=== PATIENT | female | born 1965 | race Caucasian/White ===

== ENCOUNTER 2017-08-18 11:31 | Inpatient (IN) | payer MEDICARE, MEDICAID ==
[~2017-08-18] VITALS: Ht 160 cm; Wt 94.2 kg
[2017-08-18 12:21] LABS: BASOPHILS % (AUTO) 0.5 % (0-1); EOSINOPHILS # (AUTO) 0.1 X10'3 (0-0.9); EOSINOPHILS % (AUTO) 1.7 % (0-6); HEMATOCRIT 51.1 % (35.0-45.0); HEMOGLOBIN 17.1 g/dl (12.0-16.0); LYMPHOCYTES # (AUTO) 1.6 X10'3 (1.1-4.8); MEAN CORPUSCULAR HEMOGLOBIN 31.2 PG (27.0-31.0); MEAN CORPUSCULAR HGB CONC 33.6 % (33.0-36.5); MEAN PLATELET VOLUME 8.7 FL (7.4-10.4); MONOCYTES # (AUTO) 0.5 X10'3 (0-0.9); MONOCYTES % (AUTO) 7.4 % (2-12); NEUTROPHILS # (AUTO) 4.5 X10'3 (1.8-7.7); NEUTROPHILS % (AUTO) 66.4 % (42-75); PLATELET COUNT 218 X10'3 (140-440); RED BLOOD COUNT 5.49 X10'6 (4.20-5.60); RED CELL DISTRIBUTION WIDTH 14.8 % (11.5-14.5); WHITE BLOOD COUNT 6.8 X10'3 (4.5-11.0)
[2017-08-18 12:32] LABS: INR 0.9 INR; PROTHROMBIN TIME 9.5 SECONDS (9.0-12.0)
[2017-08-18 12:38] LABS: ALANINE AMINOTRANSFERASE 117 U/L (12-78); ALBUMIN 3.4 G/DL (3.4-5.0); ALBUMIN/GLOBULIN RATIO 0.8 (1.1-1.5); ALKALINE PHOSPHATASE 325 IU/L (46-116); ANION GAP 5 (8-16); ASPARTATE AMINO TRANSFERASE 111 U/L (10-37); BLOOD UREA NITROGEN 13 MG/DL (7-18); BUN/CREATININE RATIO 17.1 (6.6-38.0); CALCIUM 9.3 MG/DL (8.5-10.1); CHLORIDE 105 MMOL/L (99-107); CREATININE 0.76 MG/DL (0.40-0.90); GLUCOSE 116 MG/DL (70-104); POTASSIUM 3.9 MMOL/L (3.5-5.1); SODIUM 138 MMOL/L (135-145); TOTAL CARBON DIOXIDE 27.7 MMOL/L (24-32); TOTAL PROTEIN 7.6 G/DL (6.4-8.2); eGFR 79 ML/MIN
[2017-08-18] MEDS ORDERED: normal saline 1000ML IV soln IVB ONE (14:35)
[2017-08-18] MEDS ORDERED: ondansetron/PF 4mg/2ml inj IV ONE (14:35)
[2017-08-18 14:46] LABS: LIPASE 139 U/L (73-393)
[2017-08-18 15:44] LABS: CLARITY,URINE CLEAR (Clear); GLUCOSE, URINE NEGATIVE (Neg); KETONES,URINE TRACE mg/dl (Neg); LEUKOCYTE ESTERASE ,URINE NEGATIVE (Neg); NITRITES, URINE NEGATIVE (Neg); OCCULT BLOOD,URINE TRACE-LYSED (Neg); PROTEIN,URINE NEGATIVE (Neg)
[2017-08-18 15:50] LABS: COLOR,URINE DARK YELLOW (Yellow); UA COLLECTION TYPE CLN CATCH MIDSTREAM
[2017-08-18 15:51] LABS: BACTERIA,URINE NONE SEEN /HPF (Neg); MUCUS STRANDS FEW /LPF (Neg); RBC,URINE 0-2 /HPF (0-2); SQUAMOUS EPITHELIAL CELL,UR FEW /LPF (FEW); WBC,URINE 0-4 /HPF (0-4)
[2017-08-18] MEDS ORDERED: LORazepam 2 mg/ml vial IV ONE (16:10)
[2017-08-18] MEDS ORDERED: HYDROcodone/acetaminophen 5mg/325mg tablet PO PRN (16:35)
[2017-08-18] MEDS ORDERED: magnesium Cl slow-release 64mg tablet PO PRN (16:35)
[2017-08-18] MEDS ORDERED: acetaminophen 325mg tablet PO PRN (16:35)
[2017-08-18] MEDS ORDERED: magnesium 4gm in 100ml NS 100 ML IV PRN (16:35)
[2017-08-18] MEDS ORDERED: magnesium hydroxide 30ml (MOM) UD suspension PO PRN (16:35)
[2017-08-18] MEDS ORDERED: bisacodyl 10mg suppository rectal RC PRN (16:35)
[2017-08-18] MEDS ORDERED: potassium Cl 20 mEq SR tablet PO PRN ×2 (16:35)
[2017-08-18] MEDS ORDERED: magnesium 2GM in 50ml NS 50 ML IV PRN (16:35)
[2017-08-18] MEDS ORDERED: mag hydrox/Alum hydrox/simeth 30ml oral suspension PO PRN (16:35)
[2017-08-18] MEDS ORDERED: potassium Cl 40MEQ/NS 500ml 500 ML IV PRN ×2 (16:35)
[2017-08-18] MEDS ORDERED: ondansetron 4mg rapidly disintigrating tab PO PRN (16:35)
[2017-08-18] MEDS: piperacillin/tazo 3.375gm/50ml 50 ML IV SCH ×2 (16:47→23:41)
[2017-08-18] MEDS ORDERED: NO HOME MEDS (17:29)
[2017-08-18] MEDS: normal saline 1000ml 1,000 ML IV SCH (17:55)
[2017-08-18] MEDS: docusate sod 100mg capsule PO SCH (20:00)
[2017-08-18] MEDS: ondansetron/PF 4mg/2ml inj IV PRN (20:53)
[2017-08-18] MEDS ORDERED: temazepam 15mg capsule PO PRN (21:00)
[2017-08-19] VITALS: BP 113/64
[2017-08-19 01:34] VITALS: BP 130/75
[2017-08-19 02:22] LABS: BASOPHILS # (AUTO) 0.1 X10'3 (0-0.2); BASOPHILS % (AUTO) 0.7 % (0-1); EOSINOPHILS # (AUTO) 0.1 X10'3 (0-0.9); EOSINOPHILS % (AUTO) 1.1 % (0-6); HEMATOCRIT 43.1 % (35.0-45.0); HEMOGLOBIN 14.6 g/dl (12.0-16.0); LYMPHOCYTES # (AUTO) 2.4 X10'3 (1.1-4.8); MEAN CORPUSCULAR HEMOGLOBIN 31.8 PG (27.0-31.0); MEAN CORPUSCULAR VOLUME 93.5 FL (78-98); MEAN PLATELET VOLUME 8.8 FL (7.4-10.4); MONOCYTES # (AUTO) 0.8 X10'3 (0-0.9); MONOCYTES % (AUTO) 9.6 % (2-12); NEUTROPHILS % (AUTO) 59.6 % (42-75); PLATELET COUNT 186 X10'3 (140-440); RED BLOOD COUNT 4.61 X10'6 (4.20-5.60); RED CELL DISTRIBUTION WIDTH 14.2 % (11.5-14.5); WHITE BLOOD COUNT 8.4 X10'3 (4.5-11.0)
[2017-08-19 02:51] LABS: ALBUMIN 2.7 G/DL (3.4-5.0); ANION GAP 10 (8-16); BLOOD UREA NITROGEN 9 MG/DL (7-18); CALCIUM 8.3 MG/DL (8.5-10.1); CHLORIDE 109 MMOL/L (99-107); GLUCOSE 89 MG/DL (70-104); MAGNESIUM 1.8 MG/DL (1.5-2.4); POTASSIUM 3.5 MMOL/L (3.5-5.1); SODIUM 143 MMOL/L (135-145); TOTAL CARBON DIOXIDE 24.5 MMOL/L (24-32); eGFR 65 ML/MIN
[2017-08-19] MEDS: normal saline 1000ml 1,000 ML IV SCH ×3 (03:40→21:35)
[2017-08-19 07:00] VITALS: BP 132/81
[2017-08-19] MEDS: K and/or MAG REPLACEMENT MC SCH (07:20)
[2017-08-19] MEDS: ondansetron/PF 4mg/2ml inj IV PRN ×2 (07:28→19:08)
[2017-08-19] MEDS: piperacillin/tazo 3.375gm/50ml 50 ML IV SCH ×3 (07:29→23:59)
[2017-08-19] MEDS: docusate sod 100mg capsule PO SCH ×2 (08:00→20:00)
[2017-08-19] MEDS ORDERED: pneumococcal 23-VAL P-sac vacc 25 mcg/0.5ml vial IMVAC ONE (09:00)
[2017-08-19 11:00] VITALS: BP 119/71
[2017-08-19] MEDS ORDERED: SINCALIDE IV ONE (11:18)
[2017-08-19] MEDS ORDERED: NORMAL SALINE IV ONE (11:18)
[2017-08-19] MEDS: LORazepam 2 mg/ml vial IV PRN ×2 (12:34→21:24)
[2017-08-19 20:00] VITALS: BP 126/76
[2017-08-20] VITALS (11 sets, daily range): BP systolic 104–147; BP diastolic 57–106
[2017-08-20 06:21] LABS: BASOPHILS % (AUTO) 0.3 % (0-1); EOSINOPHILS # (AUTO) 0.1 X10'3 (0-0.9); EOSINOPHILS % (AUTO) 2.2 % (0-6); HEMATOCRIT 45.1 % (35.0-45.0); HEMOGLOBIN 15.4 g/dl (12.0-16.0); LYMPHOCYTES # (AUTO) 1.9 X10'3 (1.1-4.8); LYMPHOCYTES % (AUTO) 28.9 % (21-51); MEAN CORPUSCULAR HEMOGLOBIN 31.8 PG (27.0-31.0); MEAN CORPUSCULAR HGB CONC 34.1 % (33.0-36.5); MEAN CORPUSCULAR VOLUME 93.2 FL (78-98); MEAN PLATELET VOLUME 9.1 FL (7.4-10.4); MONOCYTES # (AUTO) 0.6 X10'3 (0-0.9); MONOCYTES % (AUTO) 9.2 % (2-12); NEUTROPHILS # (AUTO) 3.8 X10'3 (1.8-7.7); NEUTROPHILS % (AUTO) 59.4 % (42-75); PLATELET COUNT 198 X10'3 (140-440); RED BLOOD COUNT 4.84 X10'6 (4.20-5.60); RED CELL DISTRIBUTION WIDTH 14.2 % (11.5-14.5); WHITE BLOOD COUNT 6.4 X10'3 (4.5-11.0)
[2017-08-20 06:33] LABS: PROTHROMBIN TIME 9.9 SECONDS (9.0-12.0)
[2017-08-20 06:50] LABS: ALANINE AMINOTRANSFERASE 99 U/L (12-78); ALBUMIN 2.8 G/DL (3.4-5.0); ALBUMIN/GLOBULIN RATIO 0.8 (1.1-1.5); ALKALINE PHOSPHATASE 241 IU/L (46-116); ANION GAP 8 (8-16); ASPARTATE AMINO TRANSFERASE 81 U/L (10-37); BILIRUBIN,TOTAL 7.4 MG/DL (0.1-1.0); BLOOD UREA NITROGEN 11 MG/DL (7-18); BUN/CREATININE RATIO 12.6 (6.6-38.0); CALCIUM 8.3 MG/DL (8.5-10.1); CHLORIDE 106 MMOL/L (99-107); CREATININE 0.87 MG/DL (0.40-0.90); GLUCOSE 77 MG/DL (70-104); MAGNESIUM 1.8 MG/DL (1.5-2.4); POTASSIUM 3.7 MMOL/L (3.5-5.1); SODIUM 140 MMOL/L (135-145); TOTAL CARBON DIOXIDE 25.9 MMOL/L (24-32); TOTAL PROTEIN 6.4 G/DL (6.4-8.2); eGFR 68 ML/MIN
[2017-08-20] MEDS: K and/or MAG REPLACEMENT MC SCH (08:00)
[2017-08-20] MEDS ORDERED: pneumococcal 23-VAL P-sac vacc 25 mcg/0.5ml vial IMVAC ONE (09:00)
[2017-08-20] MEDS: normal saline 1000ml 1,000 ML IV SCH ×2 (09:11→18:32)
[2017-08-20] MEDS: piperacillin/tazo 3.375gm/50ml 50 ML IV SCH ×2 (09:12→16:17)
[2017-08-20] MEDS: docusate sod 100mg capsule PO SCH ×2 (09:12→20:00)
[2017-08-20] MEDS: LORazepam 2 mg/ml vial IV PRN (09:15)
[2017-08-20] MEDS ORDERED: MIDAZolam 1mg/ml 10ml vial IV PRN (12:45)
[2017-08-20] MEDS ORDERED: LIDOcaine Viscous 15ml cup PO ONE (12:45)
[2017-08-20] MEDS ORDERED: simethicone 40mg/0.6ml oral drops 30ml MC ONE (12:45)
[2017-08-20] MEDS ORDERED: fentaNYL/PF 50MCG/1 ML 2ML syringe IV PRN (12:45)
[2017-08-20] MEDS ORDERED: normal saline 1000ml 1,000 ML IV SCH (12:45)
[2017-08-20] MEDS ORDERED: glucagon, human recombinant 1mg kit ONE (12:58)
[2017-08-20] MEDS ORDERED: MIDAZolam 1mg/ml 10ml vial ONE (12:58)
[2017-08-20] MEDS ORDERED: LIDOcaine Viscous 15ml cup ONE (12:58)
[2017-08-20] MEDS ORDERED: fentaNYL/PF 50MCG/1 ML 2ML syringe ONE (12:58)
[2017-08-20] MEDS ORDERED: meperidine/PF 100mg/ml syringe ONE (12:58)
[2017-08-20] MEDS ORDERED: iohexol 300 MG/1 ML 50ml polymer ONE (12:59)
[2017-08-20] MEDS ORDERED: levoFLOXACIN-Levaquin 500mg/D5 0 ML IV ONE (13:00)
[2017-08-20] MEDS ORDERED: diphenhydrAMINE 50 mg/ml inj ONE (13:36)
[2017-08-20] MEDS: ondansetron/PF 4mg/2ml inj IV PRN (23:05)
[2017-08-21] VITALS (19 sets, daily range): BP systolic 115–163; BP diastolic 68–93
[2017-08-21] MEDS: piperacillin/tazo 3.375gm/50ml 50 ML IV SCH ×3 (00:10→16:12)
[2017-08-21] MEDS: normal saline 1000ml 1,000 ML IV SCH ×2 (00:15→16:11)
[2017-08-21 06:10] LABS: BASOPHILS % (AUTO) 0.4 % (0-1); EOSINOPHILS # (AUTO) 0.2 X10'3 (0-0.9); EOSINOPHILS % (AUTO) 2.2 % (0-6); HEMATOCRIT 43.2 % (35.0-45.0); HEMOGLOBIN 14.7 g/dl (12.0-16.0); LYMPHOCYTES % (AUTO) 25.5 % (21-51); MEAN CORPUSCULAR HEMOGLOBIN 31.8 PG (27.0-31.0); MEAN CORPUSCULAR VOLUME 93.4 FL (78-98); MEAN PLATELET VOLUME 9.4 FL (7.4-10.4); MONOCYTES # (AUTO) 0.7 X10'3 (0-0.9); MONOCYTES % (AUTO) 8.7 % (2-12); NEUTROPHILS % (AUTO) 63.2 % (42-75); PLATELET COUNT 189 X10'3 (140-440); RED BLOOD COUNT 4.62 X10'6 (4.20-5.60); RED CELL DISTRIBUTION WIDTH 14.4 % (11.5-14.5); WHITE BLOOD COUNT 7.9 X10'3 (4.5-11.0)
[2017-08-21 06:19] LABS: ALANINE AMINOTRANSFERASE 91 U/L (12-78); ALBUMIN 2.7 G/DL (3.4-5.0); ALBUMIN/GLOBULIN RATIO 0.8 (1.1-1.5); ALKALINE PHOSPHATASE 208 IU/L (46-116); ANION GAP 6 (8-16); ASPARTATE AMINO TRANSFERASE 82 U/L (10-37); BILIRUBIN,TOTAL 3.7 MG/DL (0.1-1.0); BLOOD UREA NITROGEN 11 MG/DL (7-18); BUN/CREATININE RATIO 12.2 (6.6-38.0); CALCIUM 8.4 MG/DL (8.5-10.1); CHLORIDE 105 MMOL/L (99-107); GLUCOSE 86 MG/DL (70-104); MAGNESIUM 1.7 MG/DL (1.5-2.4); POTASSIUM 3.6 MMOL/L (3.5-5.1); SODIUM 139 MMOL/L (135-145); TOTAL PROTEIN 6.3 G/DL (6.4-8.2); eGFR 65 ML/MIN
[2017-08-21] MEDS: docusate sod 100mg capsule PO SCH ×2 (07:49→19:54)
[2017-08-21] MEDS: K and/or MAG REPLACEMENT MC SCH (08:00)
[2017-08-21] MEDS ORDERED: pneumococcal 23-VAL P-sac vacc 25 mcg/0.5ml vial IMVAC ONE (10:00)
[2017-08-21] MEDS ORDERED: BUPIVAcaine/PF 2.5 mg/ml (0.25%) 30ml vial ONE (10:55)
[2017-08-21] MEDS ORDERED: ceFAZolin 1000mg inj ONE ×3 (10:55→12:52)
[2017-08-21 11:13] LABS: HBSAG SCREEN Negative (Negative); HEP A AB, IGM Negative (Negative); HEPATITIS C ANTIBODY >11.0 s/co ratio (0.0-0.9)
[2017-08-21] MEDS ORDERED: ceFAZolin 2gm in dextrose, iso 100 ML IV ONE (11:30)
[2017-08-21] MEDS ORDERED: fentaNYL/PF 50MCG/1 ML 2ML syringe ONE (12:11)
[2017-08-21] MEDS ORDERED: midazolam 2 mg/2 ml injection ONE (12:11)
[2017-08-21] MEDS ORDERED: propofol inj 20 ML IV ONE (12:12)
[2017-08-21] MEDS ORDERED: rocuronium 10mg/ml inj IV ONE (12:12)
[2017-08-21] MEDS ORDERED: LIDOcaine 1% 30ml vial 30 ML ONE (12:15)
[2017-08-21] MEDS ORDERED: ringers solution, lacted 1,000 ML IV SCH (12:24)
[2017-08-21] MEDS ORDERED: proCHLORperazine 10 MG/2 ml inj IV PRN (12:25)
[2017-08-21] MEDS ORDERED: meperidine/PF 25mg/ml syringe IV PRN ×3 (12:25)
[2017-08-21] MEDS ORDERED: ondansetron/PF 4mg/2ml inj IV PRN (12:25)
[2017-08-21] MEDS ORDERED: sevoflurane 250ml liquid IH ONE (12:31)
[2017-08-21] MEDS ORDERED: LIDOcaine 1% 30ml vial IJ ONE (13:00)
[2017-08-21] MEDS ORDERED: glycopyrrolate 0.2mg/ml inj ONE (13:10)
[2017-08-21] MEDS ORDERED: neostigmine methylsulfate 1 MG/ML 10ml vial ONE (13:10)
[2017-08-21] MEDS ORDERED: HYDROcodone/acetaminophen 5mg/325mg tablet PO PRN (14:20)
[2017-08-21] MEDS: HYDROcodone/acetaminophen 10/325mg tab PO PRN (16:23)
[2017-08-21] MEDS: LORazepam 2 mg/ml vial IV PRN (19:53)
[2017-08-22] MEDS: piperacillin/tazo 3.375gm/50ml 50 ML IV SCH ×3 (00:49→16:00)
[2017-08-22] MEDS: normal saline 1000ml 1,000 ML IV SCH ×3 (00:50→14:32)
[2017-08-22] MEDS: HYDROcodone/acetaminophen 10/325mg tab PO PRN (01:00)
[2017-08-22 04:30] VITALS: BP 114/69
[2017-08-22 06:08] LABS: BASOPHILS % (AUTO) 0.4 % (0-1); EOSINOPHILS # (AUTO) 0.2 X10'3 (0-0.9); EOSINOPHILS % (AUTO) 2.3 % (0-6); HEMATOCRIT 42.1 % (35.0-45.0); HEMOGLOBIN 14.4 g/dl (12.0-16.0); LYMPHOCYTES # (AUTO) 1.8 X10'3 (1.1-4.8); LYMPHOCYTES % (AUTO) 20.3 % (21-51); MEAN CORPUSCULAR HEMOGLOBIN 32.1 PG (27.0-31.0); MEAN CORPUSCULAR HGB CONC 34.2 % (33.0-36.5); MEAN CORPUSCULAR VOLUME 93.7 FL (78-98); MEAN PLATELET VOLUME 9.2 FL (7.4-10.4); MONOCYTES # (AUTO) 0.9 X10'3 (0-0.9); MONOCYTES % (AUTO) 10.3 % (2-12); NEUTROPHILS # (AUTO) 5.9 X10'3 (1.8-7.7); NEUTROPHILS % (AUTO) 66.7 % (42-75); PLATELET COUNT 183 X10'3 (140-440); RED CELL DISTRIBUTION WIDTH 14.5 % (11.5-14.5); WHITE BLOOD COUNT 8.9 X10'3 (4.5-11.0)
[2017-08-22 06:17] LABS: PROTHROMBIN TIME 10.2 SECONDS (9.0-12.0)
[2017-08-22 06:18] LABS: ALBUMIN 2.8 G/DL (3.4-5.0); ANION GAP 7 (8-16); BLOOD UREA NITROGEN 6 MG/DL (7-18); BUN/CREATININE RATIO 6.6 (6.6-38.0); CALCIUM 8.4 MG/DL (8.5-10.1); CHLORIDE 103 MMOL/L (99-107); CREATININE 0.91 MG/DL (0.40-0.90); GLUCOSE 91 MG/DL (70-104); MAGNESIUM 1.7 MG/DL (1.5-2.4); POTASSIUM 3.5 MMOL/L (3.5-5.1); SODIUM 139 MMOL/L (135-145); TOTAL CARBON DIOXIDE 29.3 MMOL/L (24-32); eGFR 64 ML/MIN
[2017-08-22 07:44] VITALS: BP 129/81
[2017-08-22] MEDS: K and/or MAG REPLACEMENT MC SCH (07:52)
[2017-08-22] MEDS: docusate sod 100mg capsule PO SCH (07:56)
[2017-08-22] MEDS ORDERED: LORazepam 0.5 MG tablet PO PRN (10:10)
[2017-08-22] MEDS ORDERED: traMADol 50MG tablet PO PRN (10:15)
[2017-08-22] MEDS ORDERED: ATI0.5T PO (10:21)
[2017-08-22] MEDS ORDERED: pneumococcal 23-VAL P-sac vacc 25 mcg/0.5ml vial IMVAC ONE (10:45)
[2017-08-22 11:00] VITALS: BP 104/68
[2017-08-22] MEDS ORDERED: oxyCODONE/APAP 5-325mg tablet PO ONE (16:35)
== END 2017-08-22 17:23 | disposition home or self-care (01) | DRG 419 ==
LOC: ER 11:32 → ED HOLD 16:32 → MED 3N 18:35
PROVIDERS: ADMIT Internal Medicine; ATTEND Family Medicine
PROC: 0FC98ZZ Extirpation of Matter from Common Bile Duct, Via Natural or Artificial Opening Endoscopic (ICD-10-PCS; 2017-08-20)
PROC: 0FT44ZZ Resection of Gallbladder, Percutaneous Endoscopic Approach (ICD-10-PCS; principal; 2017-08-21 12:31)
DX: K80.70 Calculus of gallbladder and bile duct without cholecystitis without obstruction (principal); B19.20 Unspecified viral hepatitis C without hepatic coma; R94.5 Abnormal results of liver function studies; G89.29 Other chronic pain; M54.9 Dorsalgia, unspecified; R74.0 Nonspecific elevation of levels of transaminase and lactic acid dehydrogenase [LDH]; L29.9 Pruritus, unspecified; F17.210 Nicotine dependence, cigarettes, uncomplicated; Z88.6 Allergy status to analgesic agent
CPT/HCPCS: 36415; 71045; 74181; 76700; 78227; 80048; 80053; 81001; 83605; 83690; 83735; 84484; 85025; 85610; 86706; 86709; 86803; 87040; 87070; 87340; 88304; 90732; 93005; 96361; 96374; 99285; A4620; A7000; A9537; G0500; J0690; J1200; J1610; J1956; J2060; J2175; J2250; J2270; J2405; J2543; J2704; J2710; J2805; J3010; J3490; J7030; J7120; Q9967

== ENCOUNTER 2019-02-28 07:50 | Emergency (ER) | payer MEDICARE, MEDICAID ==
[~2019-02-28] VITALS: Ht 160 cm; Wt 101.8 kg
[~2019-02-28 07:50] MED LIST: ATI0.5T PO; NO HOME MEDS
[2019-02-28] MEDS ORDERED: morphine 4 MG/ML inj SYRINge IV PRN (08:00)
[2019-02-28] MEDS ORDERED: normal saline 1000ML IV soln IVB ONE ×2 (08:00→08:10)
[2019-02-28] MEDS ORDERED: ondansetron/PF 4mg/2ml inj IV ONE ×2 (08:00→08:10)
[2019-02-28] MEDS ORDERED: ketorolac tromethamine 15mg/ml inj. IV ONE ×2 (08:10→09:45)
[2019-02-28 08:28] LABS: BASOPHILS % (AUTO) 0.6 % (0-1); EOSINOPHILS # (AUTO) 0.1 X10'3 (0-0.9); EOSINOPHILS % (AUTO) 0.8 % (0-6); HEMOGLOBIN 14.7 g/dl (12.0-16.0); LYMPHOCYTES % (AUTO) 35.6 % (21-51); MEAN CORPUSCULAR HEMOGLOBIN 31.1 PG (27.0-31.0); MEAN CORPUSCULAR HGB CONC 34.1 g/dL (33.0-36.5); MEAN CORPUSCULAR VOLUME 91.3 FL (78-98); MEAN PLATELET VOLUME 8.9 FL (7.4-10.4); MONOCYTES # (AUTO) 0.8 X10'3 (0-0.9); MONOCYTES % (AUTO) 9.4 % (2-12); NEUTROPHILS # (AUTO) 4.5 X10'3 (1.8-7.7); NEUTROPHILS % (AUTO) 53.6 % (42-75); PLATELET COUNT 215 X10'3 (140-440); RED BLOOD COUNT 4.72 X10'6 (4.20-5.60); RED CELL DISTRIBUTION WIDTH 13.8 % (11.5-14.5); WHITE BLOOD COUNT 8.3 X10'3 (4.5-11.0)
[2019-02-28 08:43] LABS: ALANINE AMINOTRANSFERASE 24 U/L (12-78); ALBUMIN 3.4 G/DL (3.4-5.0); ALBUMIN/GLOBULIN RATIO 0.9 (1.1-1.5); ALKALINE PHOSPHATASE 101 IU/L (46-116); ANION GAP 7 (8-16); ASPARTATE AMINO TRANSFERASE 15 U/L (10-37); BILIRUBIN,TOTAL 0.2 MG/DL (0.1-1.0); BLOOD UREA NITROGEN 19 MG/DL (7-18); BUN/CREATININE RATIO 23.5 (6.6-38.0); CHLORIDE 107 MMOL/L (99-107); CREATININE 0.81 MG/DL (0.40-0.90); GLUCOSE 118 MG/DL (70-104); LIPASE 230 U/L (73-393); POTASSIUM 3.5 MMOL/L (3.5-5.1); SODIUM 140 MMOL/L (135-145); TOTAL CARBON DIOXIDE 26.4 MMOL/L (24-32); TOTAL PROTEIN 7.2 G/DL (6.4-8.2); eGFR 73 ML/MIN
[2019-02-28 08:49] LABS: CLARITY,URINE SLIGHTLY CLOUDY (Clear); COLOR,URINE YELLOW (Yellow); GLUCOSE, URINE NEGATIVE (Neg); KETONES,URINE NEGATIVE (Neg); LEUKOCYTE ESTERASE ,URINE NEGATIVE (Neg); NITRITES, URINE NEGATIVE (Neg); OCCULT BLOOD,URINE LARGE (Neg); PROTEIN,URINE NEGATIVE (Neg); UA COLLECTION TYPE CLN CATCH MIDSTREAM; UROBILINOGEN,URINE 0.2 E.U/dL (0.2-1.0)
[2019-02-28 08:54] LABS: HYALINE CASTS 0-3 /LPF (NEGATIVE); MUCUS STRANDS MANY /LPF (Neg); SQUAMOUS EPITHELIAL CELL,UR MANY /LPF (FEW)
[2019-02-28 08:55] LABS: BACTERIA,URINE FEW /HPF (Neg); RBC,URINE 20-50 /HPF (0-2); WBC,URINE 0-4 /HPF (0-4)
[2019-02-28] MEDS ORDERED: FLO0.4C PO (09:33)
[2019-02-28] MEDS ORDERED: HYDR-4353 PO (09:33)
[2019-02-28] MEDS ORDERED: ONDA4TAB6 PO (09:40)
[2019-02-28] MEDS ORDERED: proCHLORperazine 10 MG/2 ml inj IV ONE (09:45)
[2019-02-28 10:13] VITALS: BP 150/94
== END 2019-02-28 10:14 | disposition home or self-care (01) ==
LOC: ER 07:51
DX: N20.0 Calculus of kidney (principal); R11.2 Nausea with vomiting, unspecified; R10.31 Right lower quadrant pain; E66.9 Obesity, unspecified; G89.29 Other chronic pain; F12.90 Cannabis use, unspecified, uncomplicated; Z56.0 Unemployment, unspecified; Z90.49 Acquired absence of other specified parts of digestive tract; Z88.6 Allergy status to analgesic agent; Z79.899 Other long term (current) drug therapy
CPT/HCPCS: 36415; 74176; 80053; 81001; 83690; 85025; 85610; 96374; 96375; 96376; 99284; J0780; J1885; J2270; J2405; J7030

== ENCOUNTER 2025-03-29 10:39 | Emergency (ER) | payer MEDICARE, MEDICAID ==
[~2025-03-29] VITALS: Ht 160 cm; Wt 97.7 kg
[~2025-03-29 10:39] MED LIST changes: +ONDA4TAB6 PO
[2025-03-29] MEDS: amox tr/potassium clavulanate 875/125mg TAB PO ONE (12:19)
--- NOTE | 2025-03-29 13:32 | Physician Documentation ---
History of Present Illness ~ Chief Complaint: Bite-animal Stated Complaint: CAT BITES/SCRATCHES Time Seen by MD: 11:58 Primary Medical Doctor: [facility] Patient is seen today with complaints of cat scratch earlier today of the left upper extremity around her wrist and distal forearm. Patient denies any bites from the cat and states that it is her cat and Garrison his vaccinated. Patient has no other concern or complaint at this time. Patient denies any fevers or chills or body aches. Tetanus within 5 years?: No Medication Reconciliation Allergies: Coded Allergies: naproxen (Verified Allergy, Unknown, 04/18/17) Scheduled Ondansetron Hcl (Zofran), 1 TAB PO Q6H Scheduled PRN Lorazepam (Ativan), 0.5 MG PO Q6H PRN for for anxiety/agitation Miscellaneous Medications Home Med List (No Home Medications), (Reported) Past Medical History Past Medical History: Cholelithiasis, Chronic Back Pain Past Surgical History: cholecystectomy Alcohol Use: Rarely Drug Use: marijuana Lives with: Family Lives In: Home Occupation: unemployed Review of Systems Constitutional: Denies: chills, fever, weakness Eyes: Denies: pain, blurred vision ENT: Denies: ear pain, nose pain, throat pain, mouth pain Respiratory: Denies: cough, shortness of breath Cardiovascular: Denies: chest pain, palpitations Gastrointestinal: Denies: abdominal pain, nausea, vomiting Genitourinary: Denies: burning, dysuria Female Genitalia: Denies: vaginal discharge, pelvic pain Neurological: Denies: headache, dizziness Musculoskeletal: Denies: pain, swelling Integumentary: Denies: rash, lesions Allergic/Immunologic: Denies: hives, itching Hematologic/Lymphatic: Denies: no symptoms reported Psychiatric: Denies: depression, anxiety Physical Exam Vital Signs: Temperature: 98.2, Source: Oral, Heart Rate: 63, Respiratory Rate: 18, BP: 148/84, Pulse Oximetry: 99, Weight: 97.730 Oxygen Flow Rate: 0 Physical Exam General: Awake and Alert, no acute distress. HEENT: Conjunctiva pink, Sclera clear, Mucus Membranes moist. Neck: Supple without masses and tenderness. Resp: Unlabored. Lungs clear to auscultation bilaterally. Heart: Regular Rate and rhythm, normal S1 and S2 without murmur, rub or gallop. Musculoskeletal: Patient on exam does have multiple cat scratch wounds that appear fresh without any deep lacerations with minimal bruising subcutaneously. I do not appreciate any bite little. Patient is neurovascularly intact distally, motor function and strength intact distally. Extremities: No cyanosis,clubbing or edema. Skin: Warm and Dry. Progress Results/Orders Results/Orders Completed Orders - ROSA SILVERIO PAC Amox Tr/Potassium Clavulanate (Augmentin (03/29/25 12:15) Medications Received in ER Medications (Trade) Dose Ordered Sig/Charissa Route PRN Reason Start Time Stop Time Status Last Admin Dose Admin (Augmentin 875-125mg tablet) 1 tab ONCE ONCE PO 03/29/25 12:15 03/29/25 12:16 DC 03/29/25 12:19 1 TAB Vital Signs 03/29/25 03/29/25 10:41 11:11 Temp 98.5 98.2 Pulse 63 Resp 16 18 B/P (MAP) 151/83 148/84 (105) Pulse Ox 99 O2 Flow Rate 0 Medical Decision Making Findings Patient is seen today with complaints of cat scratch earlier today of the left upper extremity around her wrist and distal forearm. Patient denies any bites from the cat and states that it is her cat and Garrison his vaccinated. Patient has no other concern or complaint at this time. Patient denies any fevers or chills or body aches. Patient was given Augmentin 875/125 mg one tab by mouth in the ED today. Patient will follow up with primary care in 2-5 days if no better as needed sooner. Prescription of Augmentin 875/125 mg one tab by mouth twice a day for seven days sent to patient's pharmacy. Return to ED with any worsening, concerning or changing symptoms. Departure Disposition: HOME / SELF CARE / HOMELESS Impression: Primary Impression: Cat scratch Additional Impression: Cat scratch of left forearm Qualified Codes: S50.812A - Abrasion of left forearm, initial encounter; W55.03XA - Scratched by cat, initial encounter Condition: Improved Discharge Instructions: Animal Bite, Adult Additional Instructions: Patient was given Augmentin 875/125 mg one tab by mouth in the ED today. Viktoriya ent will follow up with primary care in 2-5 days if no better as needed sooner. Prescription of Augmentin 875/125 mg one tab by mouth twice a day for seven days sent to patient's pharmacy. Return to ED with any worsening, concerning or changing symptoms. Referrals: NO PRIMARY CARE PROVIDER (PCP) Prescriptions Amox Tr/Potassium Clavulanate (Augmentin 875-125 Tablet) 1 Each Tablet 1 TAB PO Q12H for 7 Days, #14 TAB Prov: ROSA SILVERIO 03/29/25 Signature Scribe Signature: No scribe Attestation: No scribe ROSA SILVERIO PAC Mar 29, 2025 13:31
[2025-03-29] MEDS ORDERED: AMOX-117 PO (13:33)
[2025-03-29] MEDS ORDERED: bacitracin 15gm ointment TP ONE (13:45)
[2025-03-29 14:05] VITALS: BP 148/84; PULSE 63; RESP 18; TEMP 98.2; O2SAT 99
== END 2025-03-29 14:06 | disposition home or self-care (01) ==
LOC: ER 10:39
DX: S50.812A Abrasion of left forearm, initial encounter (principal); F12.90 Cannabis use, unspecified, uncomplicated; Z88.6 Allergy status to analgesic agent; Z90.49 Acquired absence of other specified parts of digestive tract; W55.01XA Bitten by cat, initial encounter; Y93.89 Activity, other specified; Y92.89 Other specified places as the place of occurrence of the external cause; Y99.8 Other external cause status
CPT/HCPCS: 99283; A6258; J7030